=== PATIENT | female | born 1970 | race Caucasian/White ===

== ENCOUNTER → 2016-08-26 | Outpatient (CLI) | payer MEDICAID ==
--- NOTE | 2016-08-26 20:17 | CONS ---
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 She is also going to [employer] for her bachelor's degree. She is very sleepy. She is falling asleep at the wrong times including at work and while waiting at traffic signal. [place] score is 22. She is obese and she has gained significant amount of weight over the years and she is up in her weight by more than 100 pounds at least. She is a single mom. She has been told she snores. However, she is not sure. She wakes up with a dry mouth and she is very sleepy and non-refreshed. Note that she sleeps mainly in the morning and she gets home drives her children to school and comes back home and sleeps around 5 hours and following that, she goes back and picks the kids up from school. As such, she is averaging around 5 hours of sleep every night. She obviously has a component of insufficient sleep syndrome. At other times she goes to bed at around 11:00 p.m. to 1:00 a.m. and she wakes up at 6:00 a.m. in the morning and these are mainly the nights when she does not have shifts. No other medical problems or comorbidities. No grinding of the teeth. No sleepwalking or sleeptalking. No anxiety or panic attacks. No depression. No palpitations. No nocturnal heartburn. PAST MEDICAL HISTORY: Morbid obesity, hypertension. PAST SURGICAL HISTORY: , cholecystectomy, ( ) manipulation and D&C. DRUG ALLERGIES ARE TO AUGMENTIN. Outpatient medication list includes: Lisinopril 30 daily, Xanax 0.25 mg on a p.r.n. basis and Tramadol on a p.r.n. basis. SOCIAL HISTORY: Nonsmoker. No history of alcohol. No history of IV drugs. OCCUPATIONAL HISTORY: Nurse. FAMILY HISTORY: Noncontributory. REVIEW OF SYSTEMS: Twelve-point review of systems was done. Positive findings on above mentioned history of present illness. BP is 168/88, pulse 76, respirations 16, temperature of 98.4, saturation 97% on room air. Weight is 363. Height is 67 inches. [place] score 22. BMI is 56.8. Neck size 17 inches. GENERAL APPEARANCE: Obese, calm, comfortable. HEENT: Mallampati class IV. There is no goiter, neck masses. LUNGS: Clear to auscultation. HEART: Sounds are regular rate and rhythm. Normal S1, S2. Organs cannot be palpated. ABDOMEN: Soft, nontender. No organomegaly. EXTREMITIES: No edema. No cyanosis or clubbing. IMPRESSION: 1. Strongly suspect obstructive sleep apnea based on history of snoring, hypersomnia. The patient has typical clinical and anatomic features of obstructive sleep apnea. Further investigation will be needed and the patient will be set up for a screening polysomnogram. 2. Chronic hypersomnia. [place] score of 22. 3. Obesity with a body mass index of 56.8. 4. Hypertension. PLAN: 1. Proceed immediately with a screening polysomnogram. This will be a nighttime study for this patient. 2. Encourage weight loss. 3. Avoid driving, especially when feeling drowsy or sleepy and she is at high risk of being involved in a motor vehicle accident. 4. Tight control of cardiovascular risk factors including hypertension. 5. Further recommendations are to follow based on results of the sleep study. Strong suspicion for obstructive sleep apnea in this patient.
== END | disposition home or self-care (01) ==
LOC: SLEEP 16:39
PROVIDERS: ATTEND Internal Medicine Critical Care Medicine
DX: G47.33 Obstructive sleep apnea (adult) (pediatric) (principal); G47.10 Hypersomnia, unspecified; E66.9 Obesity, unspecified; Z68.43 Body mass index [BMI] 50.0-59.9, adult; I10 Essential (primary) hypertension; Z88.1 Allergy status to other antibiotic agents
CPT/HCPCS: 99211

== ENCOUNTER 2016-09-30 09:18 | Observation (INO) | payer MEDICAID ==
[2016-09-30] MEDS ORDERED: ASPIRIN 81 MG CHEW PO STA (09:54)
--- NOTE | 2016-09-30 09:58 | ED ---
General Adult HPI - General Chief complaint: Extremity Problem,Nontraumatic Stated complaint: Arm numbness Time Seen by Provider: 09/30/16 09:37 Source: patient, RN notes reviewed Mode of arrival: ambulatory Limitations: no limitations - History of Present Illness Initial comments: 46-year-old female presents to the emergency department with a chief complaint of left arm numbness. Patient states that she has had this left arm numbness starting today when she went to drop her kids off at school. Patient states that she's been having these unusual symptoms for the last month or so. Patient states sometimes she'll get a chest tightness sometimes she'll get shortness of breath. Patient states she has woken up swelling in the past as well. Patient admits to mild nausea on and off as well. Patient states his symptoms seems to be having more than often so she was concerned. Patient denies any significant for a history and her she does admit to a history of high blood pressure and she is overweight. Sates that she is just completing off her symptoms because she does not have time to be sick but she was concerned due to the continued symptoms that she thought that she should be evaluated. Patient denies any recent fever, chills, back pain, abdominal pain, nausea vomiting, numbness or tingling, dysuria or hematuria, constipation or diarrhea, headaches or visual changes, or any other current symptoms. - Related Data Home Medications Medication Instructions Recorded Confirmed Albuterol Sulfate [Proair Hfa] 2 puff INHALATION RT-Q6H PRN 09/30/16 09/30/16 Cholecalciferol [Vitamin D3] 2,000 unit PO DAILY 09/30/16 09/30/16 Garlic 1 tab PO DAILY 09/30/16 09/30/16 Hydrochlorothiazide [Hydrodiuril] 12.5 mg PO DAILY 09/30/16 09/30/16 Lisinopril [Zestril] 20 mg PO DAILY 09/30/16 09/30/16 Magnesium 200 mg PO DAILY 09/30/16 09/30/16 Milk Thistle 150 mg PO DAILY 09/30/16 09/30/16 Allergies Allergy/AdvReac Type Severity Reaction Status Date / Time amoxicillin trihydrate AdvReac Severe Nausea & Verified 09/30/16 11:02 [From Augmentin] Vomiting potassium clavulanate AdvReac Severe Nausea & Verified 09/30/16 11:02 [From Augmentin] Vomiting Review of Systems ROS Statement: Those systems with pertinent positive or pertinent negative responses have been documented in the HPI. ROS Other: All systems not noted in ROS Statement are negative. Past Medical History Past Medical History: Hypertension Additional Past Medical History / Comment(s): DIFFICULTY SWALLOWING. History of Any Multi-Drug Resistant Organisms: None Reported Past Surgical History: Section, Cholecystectomy Additional Past Surgical History / Comment(s): X2 (2003 & 2008), RT LACRIMAL GLAND(2003), DUYEN (2006)., D&C. Past Anesthesia/Blood Transfusion Reactions: Previous Problems w/ Anesthesia, Postoperative Nausea & Vomiting (PONV) Additional Past Anesthesia/Blood Transfusion Reaction / Comment(s): DIFFICULTY WAKING, STATES WITH HER SKIN TURNED RED AND HER LIPS WERE SWOLLEN. Past Psychological History: Anxiety Smoking Status: Former smoker Past Alcohol Use History: None Reported Past Drug Use History: None Reported - Past Family History Mother Family Medical History: No Reported History General Exam - General Exam Comments Initial Comments: General: The patient is awake and alert, in no distress, and does not appear acutely ill. Eye: Pupils are equal, round and reactive to light, extra-ocular movements are intact; there is normal conjunctiva bilaterally. No signs of icterus. Ears, nose, mouth and throat: There are moist mucous membranes. Neck: The neck is supple, there is no tenderness. Cardiovascular: There is a regular rate and rhythm. No murmur, rub or gallop is appreciated. Respiratory: Lungs are clear to auscultation, respirations are non-labored, breath sounds are equal. No wheezes, stridor, rales, or rhonchi. Gastrointestinal: Soft, non-distended, non-tender abdomen without masses or organomegaly noted. There is no rebound or guarding present. No CVA tenderness. Bowel sounds are unremarkable. Back: There is no tenderness to palpation in the midline. There is no obvious deformity. No rashes noted. Musculoskeletal: Normal ROM, no tenderness, There is no pedal edema. There is no calf tenderness or swelling. Sensation intact. Pulses equal bilaterally 2+. Neurological: CN II-XII intact, There are no obvious motor or sensory deficits. Coordination appears grossly intact. Speech is normal. Skin: Skin is warm and dry and no rashes or lesions are noted. Psychiatric: Cooperative, appropriate mood & affect, normal judgment. Limitations: no limitations Course Vital Signs 09/30/16 09:23 Temperature 99.3 F Pulse Rate 97 Respiratory 20 Rate Blood Pressure 199/96 O2 Sat by Pulse 98 Oximetry EKG Findings - EKG Comments: EKG Findings:: normal sinus rhythm 86 bpm, normal axis, no atopy, no S-T depressions or elevations, patient does have T-wave inversion in V3 Medical Decision Making - Medical Decision Making 46-year-old female presents to emergency room chief complaint of continuing on and off chest pain like symptoms. There is concerned due to the patient's age the patient's gender the patient's obesity hypertension and borderline cholesterol along with the unusual chest pain symptoms for possible heart pathology. At this time we will admit the patient will start heparin. Patient is currently pain-free. The case was discussed with Dr. Keeley Gil discrete admission. - Lab Data Result diagrams: 09/30/16 09:38 09/30/16 09:38 Lab Results 09/30/16 09/30/16 09/30/16 Range/Units 09:38 09:38 09:38 WBC 5.8 (3.8-10.6) k/uL RBC 4.36 (3.80-5.40) m/uL Hgb 13.8 (11.4-16.0) gm/dL Hct 41.1 (34.0-46.0) % MCV 94.3 (80.0-100.0) fL MCH 31.7 (25.0-35.0) pg MCHC 33.6 (31.0-37.0) g/dL RDW 12.7 (11.5-15.5) % Plt Count 171 (150-450) k/uL Neutrophils % 70 % Lymphocytes % 19 % Monocytes % 5 % Eosinophils % 4 % Basophils % 1 % Neutrophils # 4.0 (1.3-7.7) k/uL Lymphocytes # 1.1 (1.0-4.8) k/uL Monocytes # 0.3 (0-1.0) k/uL Eosinophils # 0.2 (0-0.7) k/uL Basophils # 0.0 (0-0.2) k/uL PT (9.0-12.0) sec INR (<1.1) APTT (22.0-30.0) sec Sodium 144 (137-145) mmol/L Potassium 4.0 (3.5-5.1) mmol/L Chloride 107 (98-107) mmol/L Carbon Dioxide 25 (22-30) mmol/L Anion Gap 12 mmol/L BUN 18 H (7-17) mg/dL Creatinine 0.72 (0.52-1.04) mg/dL Est GFR (MDRD) Af Amer >60 (>60 ml/min/1.73 sqM) Est GFR (MDRD) Non-Af >60 (>60 ml/min/1.73 sqM) Glucose 127 H (74-99) mg/dL Calcium 9.9 (8.4-10.2) mg/dL Magnesium 1.7 (1.6-2.3) mg/dL Total Bilirubin 0.6 (0.2-1.3) mg/dL AST 54 H (14-36) U/L ALT 96 H (9-52) U/L Alkaline Phosphatase 78 (38-126) U/L Total Creatine Kinase 283 H (30-135) U/L CK-MB (CK-2) 2.5 H* (0.0-2.4) ng/mL CK-MB (CK-2) Rel Index 0.9 Troponin I <0.012 (0.000-0.034) ng/mL Total Protein 7.1 (6.3-8.2) g/dL Albumin 4.1 (3.5-5.0) g/dL 09/30/16 Range/Units 09:38 WBC (3.8-10.6) k/uL RBC (3.80-5.40) m/uL Hgb (11.4-16.0) gm/dL Hct (34.0-46.0) % MCV (80.0-100.0) fL MCH (25.0-35.0) pg MCHC (31.0-37.0) g/dL RDW (11.5-15.5) % Plt Count (150-450) k/uL Neutrophils % % Lymphocytes % % Monocytes % % Eosinophils % % Basophils % % Neutrophils # (1.3-7.7) k/uL Lymphocytes # (1.0-4.8) k/uL Monocytes # (0-1.0) k/uL Eosinophils # (0-0.7) k/uL Basophils # (0-0.2) k/uL PT 9.9 (9.0-12.0) sec INR 1.0 (<1.1) APTT 23.8 (22.0-30.0) sec Sodium (137-145) mmol/L Potassium (3.5-5.1) mmol/L Chloride (98-107) mmol/L Carbon Dioxide (22-30) mmol/L Anion Gap mmol/L BUN (7-17) mg/dL Creatinine (0.52-1.04) mg/dL Est GFR (MDRD) Af Amer (>60 ml/min/1.73 sqM) Est GFR (MDRD) Non-Af (>60 ml/min/1.73 sqM) Glucose (74-99) mg/dL Calcium (8.4-10.2) mg/dL Magnesium (1.6-2.3) mg/dL Total Bilirubin (0.2-1.3) mg/dL AST (14-36) U/L ALT (9-52) U/L Alkaline Phosphatase (38-126) U/L Total Creatine Kinase (30-135) U/L CK-MB (CK-2) (0.0-2.4) ng/mL CK-MB (CK-2) Rel Index Troponin I (0.000-0.034) ng/mL Total Protein (6.3-8.2) g/dL Albumin (3.5-5.0) g/dL Disposition Clinical Impression: Unstable angina Disposition: ADMITTED IP TO THIS [facility] Condition: Stable Time of Disposition: :44 Decision Date: 09/30/16 Decision Time: 11:45
[2016-09-30 10:18] LABS: Basophils % (A) 1 %; CH 32.3; CHCM 34.3; Eosinophils # (A) 0.2 k/uL (0-0.7); Eosinophils % (A) 4 %; HCT 41.1 % (34.0-46.0); HDW 2.79; HGB 13.8 gm/dL (11.4-16.0); Luc % (Auto) 2; Lymphocytes # (A) 1.1 k/uL (1.0-4.8); Lymphocytes % (A) 19 %; MCH 31.7 pg (25.0-35.0); MCHC 33.6 g/dL (31.0-37.0); MCV 94.3 fL (80.0-100.0); Mean Platelet Volume 7.7; Monocytes # (A) 0.3 k/uL (0-1.0); Monocytes % (A) 5 %; Neutrophils % (A) 70 %; RBC 4.36 m/uL (3.80-5.40); RDW 12.7 % (11.5-15.5); WBC 5.8 k/uL (3.8-10.6)
[2016-09-30 10:24] LABS: Partial Thromboplastin Time 23.8 sec (22.0-30.0); Prothrombin Time 9.9 sec (9.0-12.0)
--- NOTE | 2016-09-30 10:26 | XR ---
EXAMINATION TYPE: XR chest 2V DATE OF EXAM: 09/30/2016 10:10 AM COMPARISON: NONE HISTORY: Cough TECHNIQUE: Frontal and lateral views of the chest are obtained. FINDINGS: There is no focal air space opacity, pleural effusion, or pneumothorax seen. The cardiac silhouette size is within normal limits. The osseous structures are intact. IMPRESSION: No acute cardiopulmonary process.
[2016-09-30 10:30] LABS: ALT 96 U/L (9-52); AST 54 U/L (14-36); Alkaline Phosphatase 78 U/L (38-126); Anion Gap 12 mmol/L; Blood Urea Nitrogen 18 mg/dL (7-17); Calcium 9.9 mg/dL (8.4-10.2); Carbon Dioxide 25 mmol/L (22-30); Chloride 107 mmol/L (98-107); Glucose 127 mg/dL (74-99); Magnesium 1.7 mg/dL (1.6-2.3); Non-African American GFR(MDRD) >60 (>60 ml/min/1.73 sqM); Sodium 144 mmol/L (137-145); Total Bilirubin 0.6 mg/dL (0.2-1.3); Total Protein 7.1 g/dL (6.3-8.2)
[2016-09-30 10:35] LABS: Creatine Kinase 283 U/L (30-135)
[2016-09-30 10:48] LABS: Troponin I <0.012 ng/mL (0.000-0.034)
[2016-09-30 10:52] LABS: Creatine Kinase MB 2.5 ng/mL (0.0-2.4)
[2016-09-30] MEDS ORDERED: HEPARIN SODIUM,PORCINE 5,000 UNIT/ML 1 ML VIAL IV ONE (11:45)
[2016-09-30] MEDS ORDERED: HEPARIN SODIUM,PORCINE/D5W PMX 25,000 UNIT in DEXTROSE/WATER 1 500ML.BAG IV SCH (11:45)
[2016-09-30] MEDS ORDERED: NITROGLYCERIN SL TABS 0.4 MG TAB SUBLINGUAL PRN (11:45)
[2016-09-30] MEDS ORDERED: ALBUTEROL NEBULIZED 2.5 MG/3 ML INHALATION PRN (11:46)
--- NOTE | 2016-09-30 14:16 | P.HPIM ---
<Selvin Nayak D - Last Filed: 09/30/16 13:47> History of Present Illness H&P Date: 09/30/16 Chief Complaint: Left arm numbness Patient is a 46-year-old female with medical history significant for GERD, hypertension, hyperlipidemia, sleep apnea, and morbid obesity. Patient presented to the emergency department complains of left arm numbness that started while she was dropping her child off for school. Patient states the episode lasted approximately 15 minutes. No other associated symptoms reported. Patient states that over the last couple months she has been having very brief episodes of chest pain, pain in her upper back, and episodes of waking up gasping for air when she is sleeping. Patient reports increased shortness of breath over the last month. Patient states she has been taking 40 mg of lisinopril instead of the prescribed 20 mg of lisinopril over the last month for increased blood pressure. Patient also states that she stopped taking her prescribed hydrochlorothiazide due to working nights and having leg cramps. Patient denies recent fevers, chills, nausea, vomiting, abdominal pain , diarrhea, constipation, urinary incontinence, dysuria, urgency, or hematuria. Chest x-ray on admission unremarkable. EKG with evidence of normal sinus rhythm without ST-T depression or elevation. Admission labs with evidence of slightly elevated LFTs and elevation of total CK and CK-MB. First set of troponin negative. Patient was admitted to the observation unit with consult requested for cardiology service. Past Medical History Past Medical History: GERD/Reflux, Hypertension Additional Past Medical History / Comment(s): DIFFICULTY SWALLOWING at times- EGD normal, allergies, recently had sleep study and has not gotten results yet, borderline high cholesterol. History of Any Multi-Drug Resistant Organisms: None Reported Past Surgical History: Section, Cholecystectomy Additional Past Surgical History / Comment(s): 2014 EGD with bx-normal, C- SECTION X2 (2003 & 2008), RT LACRIMAL GLAND(2003), DUYEN (2006)., D&C. Past Anesthesia/Blood Transfusion Reactions: Previous Problems w/ Anesthesia, Postoperative Nausea & Vomiting (PONV) Additional Past Anesthesia/Blood Transfusion Reaction / Comment(s): DIFFICULTY WAKING, STATES WITH 2nd HER SKIN TURNED RED AND HER LIPS/body WERE SWOLLEN. Past Psychological History: Anxiety Additional Psychological History / Comment(s): Pt resides with her 2 children under the age of 18yrs. She is independent. Smoking Status: Former smoker Past Alcohol Use History: None Reported Additional Past Alcohol Use History / Comment(s): Pt started smoking in 1988 and quit in 2001. Past Drug Use History: None Reported - Past Family History Father Family Medical History: Diabetes Mellitus, Hypertension Mother Family Medical History: Diabetes Mellitus, Hypertension Medications and Allergies Home Medications Medication Instructions Recorded Confirmed Type Albuterol Sulfate [Proair Hfa] 2 puff INHALATION RT-Q6H PRN 09/30/16 09/30/16 History Cholecalciferol [Vitamin D3] 2,000 unit PO DAILY 09/30/16 09/30/16 History Garlic 1 tab PO DAILY 09/30/16 09/30/16 History Hydrochlorothiazide [Hydrodiuril] 12.5 mg PO DAILY 09/30/16 09/30/16 History Lisinopril [Zestril] 20 mg PO DAILY 09/30/16 09/30/16 History Magnesium 200 mg PO DAILY 09/30/16 09/30/16 History Milk Thistle 150 mg PO DAILY 09/30/16 09/30/16 History Allergies Allergy/AdvReac Type Severity Reaction Status Date / Time amoxicillin trihydrate AdvReac Severe Nausea & Verified 09/30/16 11:02 [From Augmentin] Vomiting potassium clavulanate AdvReac Severe Nausea & Verified 09/30/16 11:02 [From Augmentin] Vomiting Physical Exam Vitals: Vital Signs Temp Pulse Pulse Resp BP BP Pulse Ox 09/30/16 13:32 97 09/30/16 13:09 97.9 F 68 18 179/83 96 09/30/16 12:37 72 18 163/84 98 09/30/16 12:08 82 74 H 175/81 98 09/30/16 12:04 98.1 F 83 16 186/88 98 Intake and Output 09/29/16 09/30/16 09/30/16 22:59 06:59 14:59 Other: Voiding Method Toilet Weight 166.9 kg Patient Weight 10/01/16 06:59 Weight 166.9 kg GENERAL: Pt awake and alert, well-appearing, well-nourished, and in no acute distress. HEAD: Atraumatic, normocephalic. EYES: Pupils equal and round. Sclera anicteric, conjunctiva are normal. ENT: Moist mucous membranes. NECK:Normal range of motion, supple without lymphadenopathy or JVD. No carotid bruits. Thyroid midline, small and firm without palpable masses. LUNGS: Breath sounds clear to auscultation bilaterally. No wheezes, rales, or rhonchi. HEART: Heart S1, S2, no S3 or S4. Regular rate and rhythm. No murmurs, rubs or gallops. ABDOMEN: Soft, morbidly obese, nontender, nondistended, normoactive bowel sounds. EXTREMITIES: 2+ peripheral pulses. Trace edema to bilateral lower extremities. No calf tenderness. NEUROLOGICAL: Pt oriented x 3. No focal deficits. Strength and sensation grossly intact. PSYCH: Normal mood, normal affect. SKIN: Warm, dry, intact. Results CBC & Chem 7: 09/30/16 09:38 09/30/16 09:38 Chest x-ray: report reviewed Thrombosis Risk Factor Assmnt - DVT/VTE Prophylaxis DVT/VTE Prophylaxis: Low risk, early ambulation encouraged - Choose All That Apply Any of the Below Risk Factors Present?: Yes Each Factor Represents 1 point: Age 41-60 years, Obesity (BMI >25) Other Risk Factors: No Other congenital or acquired thrombophilia - If yes, enter type in comment: No Thrombosis Risk Factor Assessment Total Risk Factor Score: 2 Thrombosis Risk Factor Assessment Level: Low Risk Assessment and Plan Plan: Impression and plan: 1. Left arm numbness, present on admission, resolved. Cardiology consult requested, recommendations pending. Continue cardiac monitoring. Continue aspirin. Patient will undergo stress test and stress echo in a.m. Echocardiogram Doppler has also been ordered. Await results of serial troponins and cardiac profile. 2. Hypertensive urgency, present on admission, with history of hypertension. Continue lisinopril 20 mg by mouth daily, continue hydrochlorothiazide 12.5 mg by mouth daily. 3. Elevated random blood sugar, present on admission. 4. Elevated AST and ALT, chronic, with history of mild hepatomegaly suspect secondary to fatty infiltration. 5. Elevated total CK, present on admission. 6. Elevated CK-MB, present on admission 7. Severe symptomatic obstructive sleep apnea, newly diagnosed, without use of CPAP machine. 8. Morbid obesity, BMI 57.6. Encourage weight loss and follow-up in the outpatient setting. 9. Dyslipidemia. 10. History of anxiety. 11. History of nicotine dependence, quit smoking in 2001. 12. DVT prophylaxis. Encourage early ambulation. The above impression and plan have been discussed and directed by Dr. Toussaint. Selvin ROBERTSON acting as scribe for Dr. Toussaint. <Hunter Toussaint Jr - Last Filed: 09/30/16 18:20> Physical Exam Osteopathic Statement: *. No significant issues noted on an osteopathic structural exam other than those noted in the History and Physical/Consult. Vitals: Vital Signs Temp Pulse Pulse Resp BP BP Pulse Ox 09/30/16 15:28 98.5 F 62 18 162/77 96 09/30/16 13:32 97 09/30/16 13:09 97.9 F 68 18 179/83 96 09/30/16 12:37 72 18 163/84 98 09/30/16 12:08 82 74 H 175/81 98 09/30/16 12:04 98.1 F 83 16 186/88 98 Intake and Output 09/30/16 09/30/16 09/30/16 06:59 14:59 22:59 Intake Total 236 Balance 236 Intake: Oral 236 Other: Voiding Method Toilet Toilet Weight 166.9 kg Patient Weight 10/01/16 06:59 Weight 166.9 kg Results CBC & Chem 7: 09/30/16 09:38 09/30/16 09:38 Labs: Abnormal Lab Results - Last 24 Hours (Table) 09/30/16 Range/Units 15:16 Total Creatine Kinase 238 H (30-135) U/L
[2016-09-30] MEDS ORDERED: Magnesium Replacement Protocol 1 EACH MISC MISCELLANE PRN (14:18)
--- NOTE | 2016-09-30 14:23 | CONS ---
DATE OF CONSULTATION: Mrs. Gil is a 46-year-old female with a history of hypertension, no prior history of coronary artery disease, who presented to the emergency room with left arm numbness. She was dropping her son to school today when she started to complain of numbness in the left arm and because of that, came into the emergency room. 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 She has dyspnea on exertion. She has chronic peripheral edema. No clear PND. No orthopnea. She was recently diagnosed with obstructive sleep apnea, but she has not started using her CPAP yet. She has no prior cardiac history. Her coronary risk factors are remarkable for hypertension. She stopped smoking in 2002. She had borderline hyperlipidemia. She is nondiabetic. Her medications at home include Zestril that she is taking 40 mg. She has not been using her hydrochlorothiazide. She is on Prolia on a p.r.n. basis. REVIEW OF SYSTEMS: RESPIRATORY SYSTEM: She had a prior history of asthma related to allergy that has improved. No recent cough or wheezing. GI SYSTEM: No recent GI bleeding. No peptic ulcer disease. SYSTEM: No dysuria or hematuria. NERVOUS SYSTEM: No stroke or seizure. PHYSICAL EXAMINATION: A 46-year-old female, alert, oriented, in no apparent distress. Blood pressure running in the 160 to 170 with a heart rate in the 60s. HEAD: Normocephalic. EYES: Sclerae nonicteric. NECK: Good upstroke. No bruit. No jugular venous distention. LUNGS: Clear to auscultation. HEART: Regular rate and rhythm. S1, S2, no S3, no rub. ABDOMEN: Soft, obese, nontender, positive bowel sounds. No organomegaly. EXTREMITIES: +1 edema bilaterally. Lab data revealed BUN and creatinine of 18 and 0.7. Potassium 4.0, AST of 54, ALT of 96. Troponin less than 0.012. Hemoglobin is 13.8. EKG sinus mechanism, normal axis and intervals. Normal echocardiogram. Chest x-ray shows no acute changes. IMPRESSION: 1. Left arm tingling with occasional sharp pain in the back and in the chest, atypical for ischemic heart disease, probably noncardiac. 2. Hypertension. 3. Elevated liver function tests could be related to fatty liver. 4. Obesity. RECOMMENDATION: From the cardiac standpoint, will resume the hydrochlorothiazide. I have discussed with her the rationale behind that, I will obtain echocardiogram with Doppler as well as a stress echocardiogram. If no evidence of inducible ischemia, then no further cardiac work-up will be needed. Thank you for this consult. Will follow with you.
[2016-09-30] MEDS ORDERED: HYDROCHLOROTHIAZIDE 12.5 MG CAP PO SCH (14:30)
[2016-09-30] MEDS: NITROGLYCERIN OINT 1 INCH/GM PACKET TOPICAL SCH ×3 (15:27→23:55)
[2016-09-30] MEDS: MAGNESIUM SULFATE-D5W PMX 1 GM in DEXTROSE/WATER 1 100ML.BAG IVPB SCH ×2 (15:33→16:44)
[2016-09-30 16:02] LABS: Creatine Kinase 238 U/L (30-135)
[2016-09-30 16:08] LABS: Creatine Kinase MB 1.9 ng/mL (0.0-2.4); Troponin I <0.012 ng/mL (0.000-0.034)
[2016-09-30] MEDS: SODIUM CHLORIDE 0.9% 1,000 ML IV SCH ×3 (22:25→23:55)
[2016-09-30 22:40] LABS: Creatine Kinase 203 U/L (30-135)
[2016-09-30 22:54] LABS: Creatine Kinase MB 1.8 ng/mL (0.0-2.4); Troponin I <0.012 ng/mL (0.000-0.034)
[2016-10-01] MEDS: NITROGLYCERIN OINT 1 INCH/GM PACKET TOPICAL SCH ×2 (05:07→11:52)
[2016-10-01 07:32] LABS: Anion Gap 9 mmol/L; Blood Urea Nitrogen 15 mg/dL (7-17); Calcium 9.1 mg/dL (8.4-10.2); Carbon Dioxide 29 mmol/L (22-30); Chloride 104 mmol/L (98-107); Cholesterol 206 mg/dL (<200); Glucose 113 mg/dL (74-99); HDL Cholesterol 57 mg/dL (40-60); Non-African American GFR(MDRD) >60 (>60 ml/min/1.73 sqM); Potassium 4.2 mmol/L (3.5-5.1); Sodium 142 mmol/L (137-145); Triglycerides 125 mg/dL (<150)
[2016-10-01] MEDS ORDERED: NON-FORMULARY DRUG (Milk Thistle [Milk Thistle] 150 MG) PO SCH (09:00)
[2016-10-01] MEDS ORDERED: HYDROCHLOROTHIAZIDE 25 MG TAB PO SCH (09:00)
[2016-10-01] MEDS ORDERED: HYDROCHLOROTHIAZIDE 12.5 MG CAP PO SCH (09:00)
[2016-10-01] MEDS ORDERED: LISINOPRIL 20 MG TAB PO SCH (09:00)
[2016-10-01] MEDS ORDERED: ASPIRIN 325 MG TAB PO SCH (09:00)
[2016-10-01] MEDS ORDERED: NON-FORMULARY DRUG (Garlic [Garlic] 1 TAB) PO SCH (09:00)
[2016-10-01] MEDS ORDERED: amLODIPine 5 MG TAB PO SCH (09:00)
--- NOTE | 2016-10-01 10:01 | PN ---
Mrs. Gil a 46-year-old female who presented with left arm numbness and discomfort. She is feeling better this morning. Her breathing is stable. She has no further symptoms of chest pain. She is ambulating in the room without difficulty. Denying any dizziness. No palpitation. She denies any nausea, no vomiting. She continues to be at this time on aspirin once a day, hydrochlorothiazide 25 mg daily and amlodipine 5 mg daily. PHYSICAL EXAMINATION: Blood pressure running in the one teens to 120s with the heart in the 60s. LUNGS: Clear. HEART: Regular rate and rhythm. S1 and S2, no S3, no rub. ABDOMEN: Soft, nontender. EXTREMITIES: No edema. Lab data revealed troponin less than 0.012. BUN and creatinine of 18 and 0.72. Hemoglobin 13.8. IMPRESSION: 1. Arm discomfort, atypical for ischemic heart disease, probably noncardiac. 2. Hypertension. 3. Obesity. 4. Obstructive sleep apnea. RECOMMENDATIONS: Patient will proceed with a stress echocardiogram today. If there is no evidence of inducible ischemia, then no further cardiac workup will be needed.
--- NOTE | 2016-10-01 11:19 | ECHOF ---
Referral Reason:htn MEASUREMENTS -------- HEIGHT: 170.2 cm WEIGHT: 166.5 kg BP: 179/83 RVIDd: 3.1 cm (< 3.3) IVSd: 1.4 cm (0.6 - 1.1) LVIDd: 4.3 cm (3.9 - 5.3) LVPWd: 1.6 cm (0.6 - 1.1) IVSs: 1.9 cm LVIDs: 2.9 cm LVPWs: 1.8 cm LA Diam: 3.7 cm (2.7 - 3.8) LAESV Index (A-L): 21.21 ml/m Ao Diam: 3.0 cm (2.0 - 3.7) AV Cusp: 2.7 cm (1.5 - 2.6) MV EXCURSION: 18.395 mm (> 18.000) MV EF SLOPE: 117 mm/s (70 - 150) EPSS: 0.5 cm MV E G[place]ito: 1.21 m/s MV DecT: 189 ms MV A [place]: 0.91 m/s MV E/A Ratio: 1.33 RAP: 5.00 mmHg RVSP: 28.98 mmHg FINDINGS -------- Sinus rhythm. This was a technically adequate study. The left ventricular size is normal. There is moderate concentric left ventricular hypertrophy. Overall left ventricular systolic function is normal with, an EF between 60 - 65 %. The right ventricle is normal in size. Normal LA size by volume 22+/-6 ml/m2. The right atrium is normal in size. Aortic valve is trileaflet and is mildly thickened. Mild mitral annular calcification present. Mild tricuspid regurgitation present. Right ventricular systolic pressure is normal at < 35 mmHg. The pulmonic valve was not well visualized. The aortic root size is normal. There is no pericardial effusion. CONCLUSIONS -------- 1. Sinus rhythm. 2. Mild mitral annular calcification present. 3. Mild tricuspid regurgitation present. 4. Right ventricular systolic pressure is normal at < 35 mmHg. 5. The pulmonic valve was not well visualized. 6. The aortic root size is normal. 7. There is no pericardial effusion. 8. This was a technically adequate study. 9. The left ventricular size is normal. 10. There is moderate concentric left ventricular hypertrophy. 11. Overall left ventricular systolic function is normal with, an EF between 60 - 65 %. 12. The right ventricle is normal in size. 13. Normal LA size by volume 22+/-6 ml/m2. 14. The right atrium is normal in size. 15. Aortic valve is trileaflet and is mildly thickened. GLUE MAKER: Lizeth Gaytan RDCS
[2016-10-01] MEDS ORDERED: CHOLECALCIFEROL 1,000 UNIT TAB PO SCH (12:00)
[2016-10-01] MEDS ORDERED: MAGNESIUM OXIDE 400 MG TAB PO SCH (12:00)
[2016-10-01 12:10] VITALS: BP 146/86; PULSE 75; RESP 16; TEMP 98.1
--- NOTE | 2016-10-01 14:36 | ECHOS ---
DATE OF SERVICE: 10/01/2014 AGE: 46Y SEX: F HT: 67" WT: 367 lbs. Protocol Scott: X Others: Stress Echo Stage: 6 Dur. of Exercise: 6 minutes. *Heart Rate Blood Pressure *Rest: 86 Rest: 167/106 * *Max. Achieved: 156 Maximum BP: 201/45 85% PMHR: 149 100% PMHR: 175 *METS: 7.3 INDICATIONS: Chest pain. MEDICATIONS: Lisinopril, hydrochlorothiazide. Patient was exercised for a total period of 6 minutes. A peak heart rate of 156 was achieved. Maximum blood pressure of 201/40/5 mmHg was noted. Resting EKG shows normal sinus rhythm with normal DC interval and QRS duration and normal ST-T waves. No ST segment depression suggestive of ischemia is noted. Echocardiographic images reveal a normal left ventricular chamber size with normal left ventricular systolic function. In the immediate postexercise period, normal increase in the wall thickness and contractility is noted. FINAL IMPRESSION: This stress echocardiographic study is negative for stress-induced ischemia. EKG portion of the stress test is not suggestive of ischemia.
--- NOTE | 2016-10-01 15:26 | P.DS ---
Providers Date of admission: 09/30/16 11:59 Expected date of discharge: 10/01/16 Attending physician: J Carlos Mina Primary care physician: J Carlos Mina [facility] Course: Patient was admitted for cardiac observe 48 hours ago serial troponins were within normal limits stress echo was completely normal patient walked for 6 minutes And we will discharge this patient home at this time and follow up as an outpatient on discharge home on lisinopril 20 mg by mouth daily Norvasc 5 mg by mouth daily and hydrochlorothiazide 25 mg daily. General: [Patient awake, alert and oriented times 3. Patient in no acute distress.] HEENT: [PERRL. EOMI. No pharyngeal erythema or exudate.] Neck: [No adenopathy.] Cardiac: [Heart regular in rate and rhythm. No S3. No S4. No clicks, rubs. No murmur.] Lungs: [Clear to auscultation bilaterally.] Abdomen: [No mass. No organomegaly. Bowel sounds presnt and normoactive in all 4 quadrants.] Extremes: [No edema no cyanosis no claudication normal pulses] : [] Musculoskeletal: [No joint erythema, edema or tenderness.] Skin: [No rash.] Neurologic: [No lateralizing deficits. CN II - XII grossly intact.] Lymphatic: [No adenopathy.] Patient Condition at Discharge: Stable Plan - Discharge Summary New Discharge Prescriptions: Hydrochlorothiazide [Hydrodiuril] 25 mg PO DAILY #30 tab amLODIPine [Norvasc] 5 mg PO DAILY #30 tab Discharge Medication List Albuterol Sulfate [Proair Hfa] 2 puff INHALATION RT-Q6H PRN 09/30/16 [History] Cholecalciferol [Vitamin D3] 2,000 unit PO DAILY 09/30/16 [History] Garlic 1 tab PO DAILY 09/30/16 [History] Lisinopril [Zestril] 20 mg PO DAILY 09/30/16 [History] Magnesium 200 mg PO DAILY 09/30/16 [History] Milk Thistle 150 mg PO DAILY 09/30/16 [History] Hydrochlorothiazide [Hydrodiuril] 25 mg PO DAILY #30 tab 10/01/16 [Rx] amLODIPine [Norvasc] 5 mg PO DAILY #30 tab 10/01/16 [Rx] Follow up Appointment(s)/Referral(s): J Carlos Mina MD [Primary Care Provider] - 1-2 days Patient Instructions/Handouts: Chest Pain (DC) Discharge Disposition: HOME SELF-CARE
== END 2016-10-01 16:35 | disposition home or self-care (01) ==
LOC: EC 09:18 → 3OBS 11:59 → INTOOBSV 11:59
PROVIDERS: ADMIT Family Medicine; ATTEND Family Medicine
DX: R20.0 Anesthesia of skin (principal); R07.89 Other chest pain; M54.9 Dorsalgia, unspecified; I10 Essential (primary) hypertension; R79.89 Other specified abnormal findings of blood chemistry; E66.01 Morbid (severe) obesity due to excess calories; Z68.43 Body mass index [BMI] 50.0-59.9, adult; E78.00 Pure hypercholesterolemia, unspecified; E78.5 Hyperlipidemia, unspecified; G47.33 Obstructive sleep apnea (adult) (pediatric); I16.0 Hypertensive urgency; Z79.899 Other long term (current) drug therapy; Z82.49 Family history of ischemic heart disease and other diseases of the circulatory system; Z87.891 Personal history of nicotine dependence; Z88.0 Allergy status to penicillin; Z88.8 Allergy status to other drugs, medicaments and biological substances; F41.9 Anxiety disorder, unspecified
CPT/HCPCS: 36415; 93005; 93017; 93306; 93350; 80061; 80053; 80048; 82550; 82553; 83735 ×2; 84484; 85025; 85610; 85730; 71020; 99285; 96365; 96366; G0378 ×2; J3475

== ENCOUNTER → 2016-12-23 | Outpatient (CLI) | payer MEDICAID ==
--- NOTE | 2016-12-24 06:17 | PN ---
Evelyn is a 46, coming in for a compliance check regarding obstructive sleep apnea. The patient has been diagnosed having severe FRANCO with an AHI of 74.9 and currently she is on a CPAP pressure of 10 cm of water. She is benefiting from CPAP therapy. Her sleep quality has improved significantly. She is waking up much more alert and awake during the day and she is sleeping much more rested. She is averaging around this 5 hours and 13 minutes on her CPAP use every night. Her CPAP use for more than 4 hours is 70% of the time which is 21 out of 30 days. Her AHI while on treatment is down to 1.1. She has no leaks around her mask. She has no other complaints for now. She is happy with the treatment and she is willing to use it for now. She is also ( ) for weight loss. BP is 154/77, pulse 80, respirations 16, temperature is 98.7. Weight is 370. GENERAL APPEARANCE: Obese, calm, comfortable. HEENT: Short neck, crowding posterior pharynx. There is no goiter or neck masses. LUNGS: Diminished breath sounds bilaterally; otherwise, clear. HEART: Sounds are regular rate and rhythm. Normal S1, S2. No S3, no S4. No murmurs. ABDOMEN: Soft, nontender. No organomegaly. EXTREMITIES: No edema. No cyanosis or clubbing. IMPRESSION: 1. Severe symptomatic obstructive sleep apnea with an AHI of 74.9, worse during REM sleep and worse in a supine body position. 2. Successful CPAP therapy while on CPAP therapy. 3. Hypersomnia, improved. 4. Morbid obesity with a body mass index of 55. PLAN: 1. Weight loss. 2. Continue CPAP at the same pressure, which is 10 cm of water. 3. Hypersomnia, improved. 4. The patient is compliant. 5. Extend sleep hours to an average of 7 hours per night. 6. See me back in a year's time; earlier if needed. Her treatment is successful for now.
== END | disposition home or self-care (01) ==
LOC: SLEEP 15:47
PROVIDERS: ATTEND Internal Medicine Critical Care Medicine
DX: G47.33 Obstructive sleep apnea (adult) (pediatric) (principal); G47.10 Hypersomnia, unspecified; E66.01 Morbid (severe) obesity due to excess calories; Z68.43 Body mass index [BMI] 50.0-59.9, adult

== ENCOUNTER → 2017-02-17 | Outpatient (CLI) | payer MEDICAID ==
[2017-02-17 14:28] VITALS: BP 147/78; PULSE 77; TEMP 98.2; BMI 57.6
--- NOTE | 2017-02-17 14:43 | P.HPBAR ---
Bariatric H&P - History & Physicial H&P Date: 02/17/17 History & Physicial: Visit/CC: initial bariatric consult Patient initial contact: Initial weight: Initial weight in pounds: Height: 5 ft 7 in Initial BMI: Last weight: Current weight: 166.967 kg Current weight in pounds: 368.10 Current BMI: 57.6 [place] body weight (based on NIH guidelines): 61.235 kg Excess body weight loss: The patient is a 47 year-old F who presents for Bariatric Assessment. Patient seen today as a new patient for possible bariatric surgery. She is most interested in sleeve gastrectomy. She is a pediatric nurse here at our hospital. She is not interested in gastric bypass. She severs from hypertension and sleep apnea. She is hoping that surgical weight loss will improve those symptoms. She is currently at her heaviest weight which is 368. BMI 57. Denies DVT in the past. She had an upper endoscopy July 2015. Gastritis and distal esophagitis was seen at that time. She actually says her heartburn symptoms are mostly resolved now. No further dysphagia Review of Systems The patient denies any acute changes in vision or hearing, no dysphagia or odynophagia, no chest pain or shortness of breath, no dysuria or hematuria, no headache, no runny nose, no rectal bleeding or melena, no unexplained weight loss Past Medical History Past Medical History: GERD/Reflux, Hypertension, Sleep Apnea/CPAP/BIPAP Additional Past Medical History / Comment(s): DIFFICULTY SWALLOWING at times- EGD normal, allergies, recently had sleep study and has not gotten results yet, borderline high cholesterol. History of Any Multi-Drug Resistant Organisms: None Reported Past Surgical History: Section, Cholecystectomy Additional Past Surgical History / Comment(s): 2014 EGD with bx-normal, C- SECTION X2 (2003 & 2008), RT LACRIMAL GLAND(2003), DUYEN (2006)., D&C. Past Anesthesia/Blood Transfusion Reactions: Previous Problems w/ Anesthesia, Postoperative Nausea & Vomiting (PONV) Additional Past Anesthesia/Blood Transfusion Reaction / Comm: DIFFICULTY WAKING , STATES WITH 2nd HER SKIN TURNED RED AND HER LIPS/body WERE SWOLLEN. Past Psychological History: Anxiety Additional Psychological History / Comment(s): Pt resides with her 2 children under the age of 18yrs. She is independent. Smoking Status: Former smoker - Past Family History Father Family Medical History: Diabetes Mellitus, Hypertension Mother Family Medical History: Diabetes Mellitus, Hypertension Surgical - Exam Vital Signs Temp Pulse BP 98.2 F 77 147/78 02/17/17 14:23 02/17/17 14:23 02/17/17 14:23 Physical exam: General: Well-developed, well-nourished HEENT: Normocephalic, sclerae nonicteric Abdomen: Nontender, nondistended Extremities: No edema Neuro: Alert and oriented Bariatric Assessment & Plan (1) Morbid obesity Narrative/Plan: Options of sleeve gastrectomy discussed with the patient in detail. The patient does require a 6 month supervised weight loss program. She also work on her dietary and exercise documentation. Will consider waving her preoperative EGD because of her prior study. We'll have the patient follow-up with us as we get closer to the completion of her 6 month supervised diet. Status: Acute Bariatric Checklist Checklist: Plan: Checklist: EGD: 1. Hiatal hernia: 2. H. Pylori: HgbA1c: Vitamin D: Smoking: Former smoker Primary care physician referral: dr armijo Psychiatry clearance: Cardiology clearance: Sleep study: Diet journal: VTE risk score: VTE risk level: Rehab needs at discharge:
== END ==
LOC: BARWHC3 13:53
PROVIDERS: ATTEND Surgery
DX: Z48.815 Encounter for surgical aftercare following surgery on the digestive system (principal); E66.01 Morbid (severe) obesity due to excess calories; Z98.84 Bariatric surgery status; Z87.891 Personal history of nicotine dependence
CPT/HCPCS: 99211

== ENCOUNTER → 2017-07-07 | Outpatient (CLI) | payer MEDICAID ==
[2017-07-07 11:03] LABS: ALT 104 U/L (9-52); AST 46 U/L (14-36); Alkaline Phosphatase 69 U/L (38-126); Anion Gap 8 mmol/L; Blood Urea Nitrogen 17 mg/dL (7-17); C Reactive Protein 14.4 mg/L (<10.0); Calcium 9.9 mg/dL (8.4-10.2); Carbon Dioxide 30 mmol/L (22-30); Chloride 103 mmol/L (98-107); Glucose 144 mg/dL (74-99); Non-African American GFR(MDRD) >60 (>60 ml/min/1.73 sqM); Sodium 141 mmol/L (137-145); Total Bilirubin 0.5 mg/dL (0.2-1.3); Total Protein 6.6 g/dL (6.3-8.2)
== END | disposition home or self-care (01) ==
LOC: LABWHC1 08:57
PROVIDERS: ATTEND Family Medicine
DX: M54.5 Low back pain (principal); R53.83 Other fatigue; I10 Essential (primary) hypertension; R10.9 Unspecified abdominal pain
CPT/HCPCS: 36415; 80053; 86140

== ENCOUNTER → 2017-07-10 | Outpatient (CLI) | payer MEDICAID ==
--- NOTE | 2017-07-10 09:42 | CT ---
EXAMINATION TYPE: CT abdomen pelvis wo con DATE OF EXAM: 07/10/2017 COMPARISON: 10/31/2011 HISTORY: Abdominal pain. CT DLP: 1154 mGycm Automated exposure control for dose reduction was used. TECHNIQUE: Helical acquisition of images was performed from the lung bases through the pelvis. Exam limited by lack of IV FINDINGS: LUNG BASES: Linear changes involving the lung bases most typical scar or atelectasis.. LIVER/GB: Surgical clips in the gallbladder fossa noted suggestive previous: Cystectomy. PANCREAS: No significant abnormality is seen. SPLEEN: No significant abnormality is seen. ADRENALS: No significant abnormality is seen. KIDNEYS: There is no nephrolithiasis. There is prominence to the left renal pelvis which may be relat ed to parapelvic cysts versus mild hydronephrosis. Ureters are of normal caliber. Congenital UPJ obst ruction in the differential diagnosis. URINARY BLADDER: No significant abnormality is seen. ADENOPATHY: None visualized. OSSEOUS STRUCTURES: Severe degenerative disc disease L5-S1. BOWEL: No significant abnormality is seen. OTHER: Aorta of normal caliber. IMPRESSION: 1. There is mild prominence of the left collecting system. This could been the basis of mild UPJ obst ruction with no definite calcification. Recommend correlation with contrast CT. Parapelvic renal cyst s in the differential diagnosis. 2. Status post cholecystectomy.
== END | disposition home or self-care (01) ==
LOC: RADCTMAIN 09:02
PROVIDERS: ATTEND Family Medicine
DX: R10.84 Generalized abdominal pain (principal); Z90.49 Acquired absence of other specified parts of digestive tract
CPT/HCPCS: 74176

== ENCOUNTER → 2017-11-16 | Outpatient (CLI) | payer MEDICAID ==
[2017-11-16 10:24] LABS: Basophils % (A) 0 %; Eosinophils # (A) 0.1 k/uL (0-0.7); Eosinophils % (A) 2 %; HCT 40.6 % (34.0-46.0); HGB 13.4 gm/dL (11.4-16.0); Lymphocytes # (A) 0.9 k/uL (1.0-4.8); Lymphocytes % (A) 19 %; MCH 30.2 pg (25.0-35.0); MCV 91.4 fL (80.0-100.0); Mean Platelet Volume 7.6; Monocytes # (A) 0.2 k/uL (0-1.0); Monocytes % (A) 5 %; Neutrophils # (A) 3.5 k/uL (1.3-7.7); Neutrophils % (A) 72 %; Platelet Count 205 k/uL (150-450); RBC 4.44 m/uL (3.80-5.40); RDW 12.9 % (11.5-15.5); WBC 4.9 k/uL (3.8-10.6)
[2017-11-16 10:42] LABS: ALT 116 U/L (9-52); AST 56 U/L (14-36); Albumin 4.3 g/dL (3.5-5.0); Alkaline Phosphatase 77 U/L (38-126); Anion Gap 9 mmol/L; Blood Urea Nitrogen 17 mg/dL (7-17); Carbon Dioxide 29 mmol/L (22-30); Chloride 104 mmol/L (98-107); Cholesterol 204 mg/dL (<200); Glucose 107 mg/dL (74-99); HDL Cholesterol 52 mg/dL (40-60); LDL Cholesterol,Calculated 127 mg/dL (0-99); Potassium 4.6 mmol/L (3.5-5.1); Sodium 142 mmol/L (137-145); Total Bilirubin 0.9 mg/dL (0.2-1.3); Total Protein 7.2 g/dL (6.3-8.2); Triglycerides 126 mg/dL (<150)
== END | disposition home or self-care (01) ==
LOC: LABWHC1 09:50
PROVIDERS: ATTEND Family Medicine
DX: E66.01 Morbid (severe) obesity due to excess calories (principal); E78.2 Mixed hyperlipidemia; I10 Essential (primary) hypertension; R94.5 Abnormal results of liver function studies
CPT/HCPCS: 36415; 80053; 80061; 84443; 85025

== ENCOUNTER → 2017-11-27 | Outpatient (CLI) | payer MEDICAID ==
--- NOTE | 2017-11-27 12:41 | CT ---
EXAMINATION TYPE: CT abdomen pelvis w con DATE OF EXAM: 11/27/2017 COMPARISON: NONE HISTORY: Hydronephrosis CT DLP: 3641.4 mGycm CONTRAST: CT scan of the abdomen and pelvis is performed with Oral Contrast and with IV Contrast, patient injec chacorta with 100 mL of Isovue 300. FINDINGS: LUNG BASES-: No visible nodule. No infiltrate. LIVER/GB: Cholecystectomy clips are noted. No space occupying hepatic lesion. Biliary tree is of n ormal caliber. There is evidence of fatty hepatic infiltration. PANCREAS: No inflammation. No distinct mass. SPLEEN: No splenic enlargement. No lesion seen. ADRENALS: No nodule. No thickening. KIDNEYS/BLADDER: There is extrarenal pelvis on the left. Mild degree of hydronephrosis is difficult t o exclude. Small parapelvic cysts also identified. No evidence for nephrolithiasis. Tiny renal cortic al cysts noted measuring less than 1 cm. BOWEL: Normal appendix. Normal bowel caliber. No inflammation. GENITAL ORGANS: No gross abnormality. LYMPH NODES: No greater than 1cm abdominal or pelvic lymph nodes are appreciated. AORTA: No significant abnormality. OSSEOUS STRUCTURES: Severe degenerative disc space narrowing and there is spondylosis. OTHER: No significant additional abnormality is seen. IMPRESSION: 1. There is extrarenal pelvis on the left. Mild degree of hydronephrosis is difficult to exclude. Sma ll parapelvic cysts also identified.
== END ==
LOC: RADCTMAIN 10:24
PROVIDERS: ATTEND Family Medicine
DX: N94.89 Other specified conditions associated with female genital organs and menstrual cycle (principal); Z88.0 Allergy status to penicillin
CPT/HCPCS: 74177; Q9967

== ENCOUNTER → 2018-03-16 | Outpatient (CLI) | payer MEDICAID ==
--- NOTE | 2018-03-16 16:23 | PN ---
PROGRESS NOTE This 48-year-old female patient coming in for an annual check regarding obstructive sleep apnea. I diagnosed the patient having severe FRANCO with an AHI of 74 approximately a year ago. She is on CPAP pressure of 10. Since last seen, the patient has lost around 11 pounds. She is very compliant with CPAP therapy. She is using a Mirage FX nose mask. She is averaging about 7.3 hours of CPAP use per night. CPAP use for more than 4 hours . AHI is down to 0.9 while on treatment. Leak factor is only 6 L/minute. I noted the patient has no humidity accompanying her treatment and I put her at humidity level of 3 and I adjusted the climate controlled tubing temperature to a tubing temperature of 70 degrees Fahrenheit. She reports ongoing successful treatment. She is unable to sleep without her CPAP machine. She is waking up refreshed and alert during the day. Walworth score is down to 2. REVIEW OF SYSTEMS: 12-point review of system was done and positive findings are mentioned above history of present illness. PHYSICAL EXAMINATION: BP is 144/82, pulse 73, respirations 16, temperature 98, saturation 95% on room air. Height is 5 feet 6 inches, weight is 359, BMI 56.7, Walworth score is at 2. GENERAL APPEARANCE: Calm, comfortable. HEAD: Atraumatic, normocephalic. NECK: Short, supple. Crowding of posterior pharynx. No goiter or neck masses. LUNGS: Diminished otherwise clear. HEART: Sounds are regular. Normal S1, S2. No S3. No murmurs. ABDOMEN: Soft, nontender. No organomegaly. EXTREMITIES: No edema. No cyanosis or clubbing. IMPRESSION: 1. Symptomatic obstructive sleep apnea severe with AHI of 75, currently on CPAP pressure of 10 with excellent clinical response and compliance. 2. Obesity with interval weight loss. Current BMI 56.7. 3. Hypersomnia, improved Walworth score is down to 2. PLAN: 1. Continue using same treatment. 2. No adjustment of the CPAP pressure. 3. Add humidity of 3. 4. Temperature of tubing will be set at 72 degrees Fahrenheit. 5. See me back in a year's time and follow up earlier if needed. MMODL / IJN: [id number] /
== END | disposition home or self-care (01) ==
LOC: SLEEP 12:00
PROVIDERS: ATTEND Internal Medicine Critical Care Medicine
DX: G47.33 Obstructive sleep apnea (adult) (pediatric) (principal); E66.9 Obesity, unspecified; Z68.43 Body mass index [BMI] 50.0-59.9, adult; Z99.89 Dependence on other enabling machines and devices

== ENCOUNTER 2018-04-28 08:25 | Emergency (ER) | payer MEDICAID ==
[2018-04-28 08:44] VITALS: BP 191/96; PULSE 96; RESP 18; TEMP 98.4
[2018-04-28] MEDS ORDERED: fentaNYL (PF) 50 MCG/ML 2 ML AMP IV STA (08:55)
--- NOTE | 2018-04-28 09:00 | ED ---
ENT HPI - General Chief complaint: ENT Stated complaint: Ear pain Time Seen by Provider: 04/28/18 08:48 Source: patient, RN notes reviewed Mode of arrival: ambulatory Limitations: no limitations - History of Present Illness Initial comments: This is a 48-year-old female who states she had the onset 1 week ago left ear pain that she tried to take care of at home and finally 2 days ago she went to a outpatient clinic and was started on amoxicillin. She states she's had 4 doses of the amoxicillin. She worse onset about her she states she was unable to sleep all night. She denies any right-sided ear pain sore throat rhinorrhea she does have some localized pain to the area of the left ear. No overt fevers chills or sweats. MD complaint: ear pain - Related Data Home Medications Medication Instructions Recorded Confirmed Albuterol Sulfate [Proair Hfa] 2 puff INHALATION RT-Q6H PRN 09/30/16 02/17/17 Cholecalciferol [Vitamin D3] 2,000 unit PO DAILY 09/30/16 02/17/17 Garlic 1 tab PO DAILY 09/30/16 02/17/17 Lisinopril [Zestril] 20 mg PO DAILY 09/30/16 02/17/17 Magnesium 200 mg PO DAILY 09/30/16 02/17/17 Milk Thistle 150 mg PO DAILY 09/30/16 02/17/17 Previous Rx's Medication Instructions Recorded Hydrochlorothiazide [Hydrodiuril] 25 mg PO DAILY #30 tab 10/01/16 amLODIPine [Norvasc] 5 mg PO DAILY #30 tab 10/01/16 Ciprofloxacin-Dexameth [Ciprodex 4 drops LEFT EAR BID #3 ml 04/28/18 Otic Susp] Clindamycin [Cleocin] 300 mg PO Q6H #40 capsule 04/28/18 Hydrocodone/Acetaminophen [[place] 1 each PO Q6HR PRN #12 tab 04/28/18 5-325] predniSONE 20 mg PO BID #10 tab 04/28/18 Allergies Allergy/AdvReac Type Severity Reaction Status Date / Time amoxicillin trihydrate AdvReac Severe Nausea & Verified 04/28/18 08:38 [From Augmentin] Vomiting potassium clavulanate AdvReac Severe Nausea & Verified 04/28/18 08:38 [From Augmentin] Vomiting Review of Systems ROS Statement: Those systems with pertinent positive or pertinent negative responses have been documented in the HPI. ROS Other: All systems not noted in ROS Statement are negative. Past Medical History Past Medical History: GERD/Reflux, Hypertension, Sleep Apnea/CPAP/BIPAP Additional Past Medical History / Comment(s): DIFFICULTY SWALLOWING at times- EGD normal, allergies, recently had sleep study and has not gotten results yet, borderline high cholesterol. History of Any Multi-Drug Resistant Organisms: None Reported Past Surgical History: Section, Cholecystectomy Additional Past Surgical History / Comment(s): 2015 EGD with bx-normal, C- SECTION X2 (2003 & 2008), RT LACRIMAL GLAND(2003), DUYEN (2006)., D&C. Past Anesthesia/Blood Transfusion Reactions: Previous Problems w/ Anesthesia, Postoperative Nausea & Vomiting (PONV) Additional Past Anesthesia/Blood Transfusion Reaction / Comment(s): DIFFICULTY WAKING, STATES WITH 2nd HER SKIN TURNED RED AND HER LIPS/body WERE SWOLLEN. Past Psychological History: No Psychological Hx Reported Smoking Status: Former smoker Past Alcohol Use History: None Reported Past Drug Use History: None Reported - Past Family History Father Family Medical History: Diabetes Mellitus, Hypertension Mother Family Medical History: Diabetes Mellitus, Hypertension General Exam - General Exam Comments Initial Comments: This a well-developed well-nourished awake alert oriented 3 female Limitations: no limitations General appearance: alert, anxious, in distress Head exam: Present: atraumatic, normocephalic, normal inspection Eye exam: Present: normal appearance, PERRL, EOMI. Absent: scleral icterus, conjunctival injection, periorbital swelling ENT exam: Present: normal oropharynx, mucous membranes moist, other ( Examination of the right ear reveals no acute findings left ear is consistent with an otitis externa with a swollen ear canal the tympanic membrane is minimally visible. No exudate seen at this time tenderness to palpation and movement of the external ear some tenderness in the preauricular nodes no localized erythema seen at this time.) Neck exam: Present: normal inspection, meningismus, full ROM, lymphadenopathy ( Lymphadenopathy in the left) Respiratory exam: Present: normal lung sounds bilaterally. Absent: respiratory distress, wheezes, rales, rhonchi, stridor Extremities exam: Present: normal inspection, full ROM, normal capillary refill. Absent: tenderness, pedal edema, joint swelling, calf tenderness Back exam: Present: normal inspection Neurological exam: Present: alert, oriented X3, CN II-XII intact Psychiatric exam: Present: normal affect, normal mood Skin exam: Present: warm, dry, intact, normal color. Absent: rash Course Vital Signs 04/28/18 08:38 Temperature 98.4 F Pulse Rate 96 Respiratory 18 Rate Blood Pressure 191/96 O2 Sat by Pulse 96 Oximetry Medical Decision Making - Medical Decision Making At this time no further workup is indicated. Patient will be placed on a different antibiotic also a short course of oral steroids otic drops and pain medication. Disposition Clinical Impression: Otitis externa, Otalgia of left ear Disposition: HOME SELF-CARE Condition: Good Instructions: Earache (ED), Otitis Externa (ED) Prescriptions: Ciprofloxacin-Dexameth [Ciprodex Otic Susp] 4 drops LEFT EAR BID #3 ml Clindamycin [Cleocin] 300 mg PO Q6H #40 capsule Hydrocodone/Acetaminophen [[place] 5-325] 1 each PO Q6HR PRN #12 tab PRN Reason: Pain predniSONE 20 mg PO BID #10 tab Is patient prescribed a controlled substance at d/c from ED?: Yes When asked, does pt state using other controlled substances?: No If prescribed controlled substance>3 days was MAPS reviewed?: Prescribed <3 Days If opioid is for acute pain is fill amount 7 days or less?: Yes If Rx opioid, was Start Talking consent form obtained?: Yes Referrals: Hunter Toussaint Jr, DO [Primary Care Provider] - 1-2 days
[2018-04-28] MEDS ORDERED: methylPREDNISolone SOD SUCCI 125 MG/2 ML VIAL IM ONE (09:01)
[2018-04-28] MEDS ORDERED: KETOROLAC 60 MG/2 ML VIAL IM STA (09:01)
[2018-04-28] MEDS ORDERED: cefTRIAXone 1,000 MG VIAL (IM USE) IM STA (09:13)
== END 2018-04-28 10:00 | disposition home or self-care (01) ==
LOC: EC 08:25
DX: H60.92 Unspecified otitis externa, left ear (principal); I10 Essential (primary) hypertension; G47.30 Sleep apnea, unspecified; Z99.89 Dependence on other enabling machines and devices; Z87.891 Personal history of nicotine dependence; Z79.899 Other long term (current) drug therapy; Z88.0 Allergy status to penicillin
CPT/HCPCS: 99282; 96372 ×3; J2930; J0696; J1885

== ENCOUNTER → 2018-05-05 | Outpatient (CLI) | payer MEDICAID ==
[2018-05-05 18:12] LABS: HCT 42.3 % (34.0-46.0); HGB 13.8 gm/dL (11.4-16.0); MCH 30.8 pg (25.0-35.0); MCHC 32.8 g/dL (31.0-37.0); MCV 93.9 fL (80.0-100.0); Mean Platelet Volume 7.2; Platelet Count 181 k/uL (150-450); RDW 13.2 % (11.5-15.5); WBC 8.5 k/uL (3.8-10.6)
[2018-05-05 18:40] LABS: T4, Free (Free Thyroxine) 0.92 ng/dL (0.78-2.19)
--- NOTE | 2018-05-05 23:57 | US ---
EXAMINATION TYPE: US transvaginal DATE OF EXAM: 05/05/2018 COMPARISON: NONE CLINICAL HISTORY: 48-year-old female N92.4 [place]. Patient stated has heavy menses x 9 years; e ndometrial polyp was removed prior to in vitro fertilization; C section delivery x 2; TECHNIQUE: Transvaginal (TV) per order Date of LMP: 11/27/2017 FINDINGS: EXAM MEASUREMENTS: Uterus: 10.2 x 6.2 x 5.7 cm Endometrial Stripe: 1.4 cm Right Ovary: not well seen bowel gas. Left Ovary: 4.2 x1.9 x 1.8 cm 1. Uterus: Anteverted; scar along the anterior PAVAN; multiple small Nabothian cysts, large st = 0.5 x 0.6 x 0.4cm 2. Endometrium: Upper limits of normal in thickness which should correspond to the secretory phase. Test Director notes: Unable to correlate thickness with November 2017 LMP 3. Right Ovary: not seen 4. Left Ovary: small follicle seen 5. Bilateral Adnexa: lateral and superior to left uterine fundus is an oval cyst, possible 2.0 x 2.7 x 2.1cm paraovarian cyst. 6. Posterior cul-de-sac: wnl IMPRESSION: 1. scar. 2. Endometrial stripe measuring 1.4 cm which is corresponding to the secretory phase of the menstrual cycle. Clinically correlate. 3. Right ovary could not be visualized. 4. A 2.7 cm cyst adjacent to the left uterine fundus probably represents a paraovarian cyst.
--- NOTE | 2018-05-07 09:55 | MM ---
Reason for exam: screening (asymptomatic). Last mammogram was performed 4 years and 7 months ago. History: Patient had first child at age 32. Took hormonal contraceptives for 3 years beginning at age 17. Physical Findings: A clinical breast exam by your physician is recommended on an annual basis and results should be correlated with mammographic findings. MG 3D Screening Mammo W/Cad Bilateral CC and MLO view(s) were taken. Prior study comparison: September 28, 2013, CAD bilateral diagnostic mammogram. April 01, 2012, right diagnostic mammogram w/CAD. There are scattered fibroglandular densities. No significant changes when compared with prior studies. ASSESSMENT: Negative, BI-RAD 1 RECOMMENDATION: Routine screening mammogram of both breasts in 1 year.
== END | disposition home or self-care (01) ==
LOC: RADMAMWWP 16:41
PROVIDERS: ATTEND Obstetrics & Gynecology
DX: Z12.31 Encounter for screening mammogram for malignant neoplasm of breast (principal); N92.4 Excessive bleeding in the premenopausal period; N93.8 Other specified abnormal uterine and vaginal bleeding
CPT/HCPCS: 36415; 76830; 77063; 77067; 82670; 83001; 84439; 84443; 85027

== ENCOUNTER → 2020-02-15 | Outpatient (CLI) | payer BC ==
--- NOTE | 2020-02-16 10:49 | MM ---
Reason for exam: screening (asymptomatic). Last mammogram was performed 1 year and 9 months ago. History: Patient had first child at age 32. Took hormonal contraceptives for 3 years beginning at age 17. Physical Findings: A clinical breast exam by your physician is recommended on an annual basis and results should be correlated with mammographic findings. MG 3D Screening Mammo W/Cad Bilateral CC and MLO view(s) were taken. Prior study comparison: May 05, 2018, bilateral MG 3d screening mammo w/cad. September 28, 2013, CAD bilateral diagnostic mammogram. There are scattered fibroglandular densities. There is no discrete abnormality. No significant changes when compared with prior studies. ASSESSMENT: Negative, BI-RAD 1 RECOMMENDATION: Routine screening mammogram of both breasts in 1 year.
== END | disposition home or self-care (01) ==
LOC: RADMAMWWP 12:25
PROVIDERS: ATTEND Family Medicine
DX: Z12.31 Encounter for screening mammogram for malignant neoplasm of breast (principal)
CPT/HCPCS: 77063; 77067

== ENCOUNTER → 2024-01-15 | Outpatient (CLI) | payer BC ==
--- NOTE | 2024-01-15 18:46 | MM ---
Reason for Exam: Screening (asymptomatic). Last mammogram was performed 3 year(s) and 11 month(s) ago. Patient History: Menarche at age 13. First Full-Term at age 32. Late child-bearing (after 31). Postmenopausal. Patient has history of breast feeding. Hormonal Contraceptives for 3 years from age 17 until age 20. Risk Values: Marybeth 5 year model risk: 1.5%. NCI Lifetime model risk: 11.6%. Prior Study Comparison: 09/28/2013 Bilateral Diagnostic Mammogram, [facility]. 05/05/2018 Bilateral Screening Mammogram, [facility]. 02/15/2020 Bilateral Screening Mammogram, [facility]. Tissue Density: The breasts are almost entirely fatty. Findings: Analyzed By CAD. There is no suspicious group of microcalcifications or new suspicious mass in either breast. Overall Assessment: Negative, BI-RAD 1 Management: Screening Mammogram of both breasts in 1 year. . Patient should continue monthly self-breast exams. A clinical breast exam by your physician is recommended on an annual basis. This exam should not preclude additional follow-up of suspicious palpable abnormalities. Note on Marybeth scores and lifetime risk: 1. A Marybeth score greater than 3% is considered moderate risk. If this is the case, consider specialist referral to assess eligibility for a risk reducing agent. 2. If overall lifetime risk for the development of breast cancer is 20% or higher, the patient may qualify for future screening with alternating mammogram and breast MRI. Electronically signed and approved by: Raman Bardales M.D. Radiologist
== END | disposition home or self-care (01) ==
LOC: RADMAMWWP 13:13
PROVIDERS: ATTEND Obstetrics & Gynecology
DX: Z12.31 Encounter for screening mammogram for malignant neoplasm of breast (principal); Z78.0 Asymptomatic menopausal state
CPT/HCPCS: 77067

== ENCOUNTER → 2025-03-09 | Outpatient (CLI) | payer BC ==
--- NOTE | 2025-03-10 16:36 | MM ---
Reason for Exam: Screening (asymptomatic). Last mammogram was performed 1 year(s) and 1 month(s) ago. Patient History: Menarche at age 13. First Full-Term at age 32. Late child-bearing (after 31). Postmenopausal. Patient has history of breast feeding. Hormonal Contraceptives for 3 years from age 17 until age 20. Risk Values: Marybeth 5 year model risk: 1.6%. NCI Lifetime model risk: 11.4%. Prior Study Comparison: 05/05/2018 Bilateral Screening Mammogram, [facility]. 02/15/2020 Bilateral Screening Mammogram, [facility]. 01/15/2024 Bilateral MG screening mammo w CAD, [facility]. Tissue Density: The breasts are almost entirely fatty. Findings: Analyzed By CAD. There is no suspicious group of microcalcifications or new suspicious mass in either breast. Overall Assessment: Negative, BI-RAD 1 Management: Screening Mammogram of both breasts in 1 year. Patient should continue monthly self-breast exams. A clinical breast exam by your physician is recommended on an annual basis. This exam should not preclude additional follow-up of suspicious palpable abnormalities. Note on Marybeth scores and lifetime risk: 1. A Marybeth score greater than 3% is considered moderate risk. If this is the case, consider specialist referral to assess eligibility for a risk reducing agent. 2. If overall lifetime risk for the development of breast cancer is 20% or higher, the patient may qualify for future screening with alternating mammogram and breast MRI. [facility], , 03/10/2025 4:33 PM. Electronically signed and approved by: Raman Bardales M.D. Radiologist
== END | disposition home or self-care (01) ==
LOC: RADMAMWWP 14:29
PROVIDERS: ATTEND Internal Medicine
DX: Z12.31 Encounter for screening mammogram for malignant neoplasm of breast (principal); R92.313 Mammographic fatty tissue density, bilateral breasts; Z78.0 Asymptomatic menopausal state; Z92.0 Personal history of contraception
CPT/HCPCS: 77063; 77067